=== PATIENT | female | born 1995 | race Caucasian/White ===

== ENCOUNTER 2018-06-21 20:40 | Emergency (ER) | payer SELFPAY | END 2018-06-21 22:10 | disposition home or self-care (01) | LOC: FTE 20:40 | DX: M54.5 Low back pain (principal); R10.30 Lower abdominal pain, unspecified | CPT/HCPCS: 99283 ==

== ENCOUNTER 2019-08-05 18:16 | Inpatient (IN) | payer MEDICAID ==
[2019-08-05] MEDS ORDERED: BUTORPHANOL 2 MG INJ IV ×2 (19:30)
[2019-08-05] MEDS ORDERED: METHYLERGONOVINE 0.2 MG INJ IM (19:30)
[2019-08-05] MEDS ORDERED: CARBOPROST 250 MCG INJ IM (19:30)
[2019-08-05] MEDS ORDERED: MISOPROSTOL 200 MCG TAB PR (19:30)
[2019-08-05] MEDS ORDERED: LIDOCAINE 1% (MPF) 30 ML INJ INJ (19:30)
[2019-08-05] MEDS ORDERED: OXYTOCIN 30 UNITS/LR 500 ML IV ×2 (19:30)
[2019-08-05] MEDS: LACTATED RINGER'S 1,000 ML IV ×2 (19:42→21:33)
[2019-08-05] MEDS: AMPICILLIN 2 GM/NS (PMX) 100 ML IV (19:43)
[2019-08-05 19:58] LABS: ADD UMIC YES; UR ASCORBIC ACID NEGATIVE (NEGATIVE); UR BACTERIA FEW /HPF (NONE SEEN); UR BILIRUBIN (Dip) NEGATIVE (NEGATIVE); UR BLOOD (Dip) 1+ mg/dL (NEGATIVE); UR CLARITY CLEAR (CLEAR); UR COLOR YELLOW (YELLOW); UR GLUCOSE (Dip) NEGATIVE (NEGATIVE); UR KETONES (Dip) NEGATIVE (NEGATIVE); UR LEUKOCYTE ESTERASE (Dip) NEGATIVE Leu/ul (NEGATIVE); UR NITRITE (Dip) NEGATIVE (NEGATIVE); UR RBC 0 /HPF (0-5); UR SQUAMOUS EPITHELIAL CELL FEW /HPF (FEW); UR TOTAL PROTEIN (Dip) NEGATIVE (NEGATIVE); UR UROBILINOGEN (Dip) NEGATIVE (NEGATIVE); UR WBC 1 /HPF (0-5)
[2019-08-05 21:47] LABS: ADD MAN DIFF? NO
[2019-08-05 21:55] LABS: BASOPHIL # 0.1 10^3/ul (0.0-0.1); BASOPHILS % 0.4 % (0.0-2.0); EOSINOPHILS # 0.4 10^3/ul (0.0-0.5); EOSINOPHILS % 3.1 % (0.0-7.0); HEMATOCRIT 38.3 % (37.0-47.0); HEMOGLOBIN 12.8 g/dl (12.0-16.0); LYMPHOCYTES # 1.6 10^3/ul (0.8-2.9); MEAN CORPUSCULAR HGB CONC 33.4 g/dl (32.0-37.0); MEAN CORPUSCULAR VOLUME 92.7 fl (82.0-101.0); MEAN PLATELET VOLUME 11.4 fl (7.4-10.4); MONOCYTE # 0.7 10^3/ul (0.3-0.9); MONOCYTES % 6.1 % (0.0-11.0); NEUTROPHIL # 8.8 10^3/ul (1.6-7.5); NEUTROPHILS % 75.8 % (39.0-77.0); PLATELET COUNT 271 10^3/UL (140-415); RED BLOOD COUNT 4.13 10^6/ul (4.20-5.40)
[2019-08-05 21:55] LABS: WHITE BLOOD COUNT 11.6 10^3/ul (4.8-10.8)
[2019-08-05 22:28] LABS: INR 0.89; PROTIME 12.2 Sec (11.9-14.9)
[2019-08-05 22:29] LABS: PARTIAL THROMBOPLASTIN TIME 27.2 Sec (23.0-35.0)
[2019-08-05 22:47] LABS: HEPATITIS B SURFACE ANTIGEN NEGATIVE (NEGATIVE)
[2019-08-05 22:56] LABS: HIV 1&2 ANTIBODY NEGATIVE (NEGATIVE)
[2019-08-05 23:20] LABS: HEPATITIS C VIRAL ANTIBODY NEGATIVE (NEGATIVE)
[2019-08-06] MEDS: LACTATED RINGER'S 1,000 ML IV (00:18)
[2019-08-06] MEDS: AMPICILLIN 1 GM/NS (PMX) 50 ML IV (00:20)
[2019-08-06] MEDS: OXYTOCIN 30 UNITS/LR 500 ML IV ×3 (01:45→05:54)
[2019-08-06] MEDS: LACTATED RINGER'S 1,000 ML IV* ×5 (02:20→11:05)
[2019-08-06] MEDS ORDERED: MAGNESIUM HYDROXIDE 30ML CUP PO (02:30)
[2019-08-06] MEDS ORDERED: SENNA/DOCUSATE NA (8.6MG/50MG) TAB PO (02:30)
[2019-08-06] MEDS ORDERED: DIBUCAINE 1% 30 GM OINT TOP (02:30)
[2019-08-06] MEDS ORDERED: METHYLERGONOVINE 0.2 MG INJ IM (02:30)
[2019-08-06] MEDS ORDERED: ONDANSETRON 4 MG INJ IV (02:30)
[2019-08-06] MEDS ORDERED: ACETAMINOPHEN 325 MG TAB PO ×2 (02:30)
[2019-08-06] MEDS ORDERED: OXYTOCIN 30 UNITS/LR 500 ML IV (02:30)
[2019-08-06] MEDS ORDERED: CARBOPROST 250 MCG INJ IM (02:30)
[2019-08-06] MEDS ORDERED: MISOPROSTOL 200 MCG TAB PR (02:30)
[2019-08-06 02:43] LABS: AMPHETAMINE/METHAMPHETAMINE Negative (NEGATIVE); BARBITURATES Negative (NEGATIVE); BENZODIAZEPINES Negative (NEGATIVE); CANNABINOIDS Negative (NEGATIVE); COCAINE Negative (NEGATIVE); OPIATES Negative (NEGATIVE)
[2019-08-06] MEDS: BENZOCAINE 20% 56 ML SPRAY TOP (04:45)
[2019-08-06] MEDS: LANOLIN HPA 1 PKT TOP (04:46)
[2019-08-06] MEDS: WITCH HAZEL/GLYCERIN PAD PR (04:46)
[2019-08-06] MEDS: IBUPROFEN 600 MG TAB PO (04:47)
[2019-08-06 15:30] LABS: RAPID PLASMA REAGIN NONREACTIVE (NR)
[2019-08-07 08:40] LABS: ADD MAN DIFF? NO
[2019-08-07 08:48] LABS: BASOPHIL # 0.1 10^3/ul (0.0-0.1); BASOPHILS % 0.6 % (0.0-2.0); EOSINOPHILS # 0.4 10^3/ul (0.0-0.5); EOSINOPHILS % 3.7 % (0.0-7.0); HEMATOCRIT 32.4 % (37.0-47.0); HEMOGLOBIN 10.7 g/dl (12.0-16.0); LYMPHOCYTES # 2.3 10^3/ul (0.8-2.9); LYMPHOCYTES % 22.2 % (15.0-51.0); MEAN CORPUSCULAR HEMOGLOBIN 31.1 pg (29.0-33.0); MEAN CORPUSCULAR VOLUME 94.2 fl (82.0-101.0); MEAN PLATELET VOLUME 10.7 fl (7.4-10.4); MONOCYTE # 0.6 10^3/ul (0.3-0.9); MONOCYTES % 5.2 % (0.0-11.0); NEUTROPHIL # 7.1 10^3/ul (1.6-7.5); NEUTROPHILS % 67.6 % (39.0-77.0); PLATELET COUNT 227 10^3/UL (140-415); RED BLOOD COUNT 3.44 10^6/ul (4.20-5.40); RED CELL DISTRIBUTION WIDTH 12.4 % (11.5-14.5)
[2019-08-07 08:48] LABS: WHITE BLOOD COUNT 10.5 10^3/ul (4.8-10.8)
[2019-08-07 09:02] LABS: ALANINE AMINOTRANSFERASE 19 IU/L (13-69); ALBUMIN 3.3 g/dl (3.3-4.9); ALBUMIN/GLOBULIN RATIO 1.17; ALKALINE PHOSPHATASE 137 IU/L (42-121); ANION GAP 6 (5-13); ASPARTATE AMINO TRANSFERASE 24 IU/L (15-46); BILIRUBIN,INDIRECT 0.3 mg/dl (0-1.1); BILIRUBIN,TOTAL 0.3 mg/dl (0.2-1.3); BLOOD UREA NITROGEN 10 mg/dl (7-20); CALCIUM 9.2 mg/dl (8.4-10.2); CARBON DIOXIDE 24 mmol/L (21-31); CHLORIDE 107 mmol/L (97-110); CREATININE 0.61 mg/dl (0.44-1.00); Estimated GFR > 60 mL/min (>60); GLUCOSE 60 mg/dl (70-220); POTASSIUM 3.6 mmol/L (3.5-5.1); SODIUM 137 mmol/L (135-144); TOTAL PROTEIN 6.1 g/dl (6.1-8.1)
[2019-08-07] MEDS: IBUPROFEN 600 MG TAB PO (17:41)
[2019-08-07] MEDS: LACTATED RINGER'S 1,000 ML IV* (18:20)
[2019-08-07 22:21] LABS: RUBELLA ANTIBODY - IGG <0.90 index
[2019-08-08] MEDS: LACTATED RINGER'S 1,000 ML IV* ×5 (04:35→11:38)
[2019-08-10 12:17] LABS: RUBELLA ANTIBODY - IGM <20.00 AU/mL
== END 2019-08-08 15:29 | disposition home or self-care (01) | DRG 807 ==
LOC: OBT 18:16 → L-D 18:19 → PP1 08-06 03:38 → L-D 18:21 → OBT 19:20 → L-D 19:20
PROC: 10E0XZZ Delivery of Products of Conception, External Approach (ICD-10-PCS; principal; 2019-08-06)
PROC: 0KQM0ZZ Repair Perineum Muscle, Open Approach (ICD-10-PCS; 2019-08-06)
DX: O77.0 Labor and delivery complicated by meconium in amniotic fluid (principal); Z37.0 Single live birth; O70.1 Second degree perineal laceration during delivery; Z3A.40 40 weeks gestation of pregnancy
CPT/HCPCS: 76815; 80053; 80307; 81001; 85025; 85610; 85730; 86592; 86703; 86762; 86803; 86850; 86900; 86901; 87340; 88307; 99464